=== PATIENT | male | born 1990 | race Caucasian/White ===

== ENCOUNTER 2022-12-25 16:53 | Emergency (ER) | payer BC, SELFPAY ==
--- NOTE | ~2022-12-25 | XR_ITS ---
EXAMINATION: XR CHEST CLINICAL INFORMATION: Chest pain COMPARISON: None available. TECHNIQUE: 2 views of the chest were obtained. FINDINGS: No significant abnormality is noted involving the heart, lungs, mediastinum, bony thorax or soft tissues. XR/XR chest 2V IMPRESSION: Unremarkable chest examination.
--- NOTE | 2022-12-25 16:54 | ECG_ITS ---
Test Reason : CHEST PAIN Blood Pressure : / mmHG Vent. Rate : 078 BPM Atrial Rate : 078 BPM P-R Int : 140 ms QRS Dur : 080 ms QT Int : 342 ms P-R-T Axes : 030 029 014 degrees QTc Int : 389 ms Normal sinus rhythm Anterior infarct , age undetermined Abnormal ECG No previous ECGs available Referred By: Shirley Daigle Electronically Signed By:ERYN OBREGON
[2022-12-25 17:27] VITALS: BP 147/104; PULSE 88; RESP 18; TEMP 36.8; O2SAT 99; BMI 37.9
--- NOTE | 2022-12-25 17:29 | ED_ITS ---
HPI - General Adult General Chief complaint: Chest Pain Stated complaint: chest pain, high blood pressure Time Seen by Provider: 12/25/22 22:30 Source: patient Mode of arrival: ambulatory Limitations: no limitations History of Present Illness HPI narrative: 32-year-old male presents with chest pain. Chest pain started around 10:00 a.m. today. The pain has been intermittent. There is no clear relieving or exacerbating features. He describes the pain is not itching sensation. Sometimes the itching radiates to his neck. Not associated with nausea, vomiting, shortness of breath. Not associated with exertion. He denies any palpitations, lightheadedness. Does have some mild nausea and discomfort. He is taking his blood pressure home with a systolic pressure of 170. He went to have his tooth pulled yesterday and his blood pressure was 116 deferred taking the tooth out until tomorrow. Patient has been off his blood pressure medications for a month. He is typically taking lisinopril 5 mg daily. He does have a follow-up appointment next week with his primary care provider. Related Data Previous Rx's Medication Instructions Recorded lisinopril 10 mg tablet 10 mg PO DAILY #14 tabs 12/25/22 Allergies Allergy/AdvReac Type Severity Reaction Status Date / Time No Known Allergies Allergy Verified 12/25/22 17:30 [No Known Allergies*] Review of Systems 2 Review of Systems: CONSTITUTIONAL: Denies weight loss, fever and chills. HEENT: Denies changes in vision and hearing. RESPIRATORY: Denies SOB and cough. CV: Denies palpitations + CP. GI: Denies abdominal pain, nausea, vomiting and diarrhea. : Denies dysuria and urinary frequency. MSK: Denies myalgia and joint pain. SKIN: Denies rash and pruritus. NEUROLOGICAL: Denies headache and syncope. PSYCHIATRIC: Denies recent changes in mood. Denies anxiety and depression. All other ROS are negative unless in HPI PMF Social History Social History Smoked in Last 30 Days: No Use of substances other than those prescribed or required for medical reasons: Yes Substance Use Type: Marijuana Advance Directives: No Advance Directives Information Provided: No Physical Exam ED Vital Signs: Vital Signs - 24 hr 12/25/22 17:27 10/02/23 22:15 Temperature 98.3 F 98.2 F Pulse Rate 88 78 Respiratory Rate 18 18 Blood Pressure 147/104 H 156/96 H Pulse Oximetry 99 97 Oxygen Delivery Method Room Air Room Air BMI result Body Mass Index 37.9 GEN: Well developed, no acute distress, alert, oriented HEENT: Normocephalic, atraumatic, normal external ears, nose appears normal, no oropharyngeal edema or exudates Eyes: Normal to appearance Neck: Supple, no lymphadenopathy Respiratory: Talks in complete sentences, no respiratory distress, clear to auscultation bilaterally Cardiovascular: Regular rate and rhythm, no murmurs rubs or gallops Abdomen: Soft, nontender, nondistended, no guarding, no rebound Back: No CVA tenderness Extremities: No clubbing cyanosis or edema Neurologic: No focal neurologic deficits, cranial nerves 2-12 intact, strength is 5/5 bilaterally Skin: No rash Course Course Course Narrative: This is an RME: Additional HPI, ROS, PE not included below will be deferred to primary provider. This is a [id number], with a hx of HTN, presenting to the Er with complaints of left sided chest pain, left sided headache and high blood pressure readings. Patient reports that he has been without his medications for the last 2 weeks, he has an appointment with his primary care physician on January 02. Blood pressure elevated at 174/104 in triage. Plan: Labs, EKG, chest xray Reevaluation(s) Reevaluation #1: The workup is complete. His examination is unremarkable. EKG is abnormal but no acute ischemic changes. I did discuss this finding with the patient will refer him to Cardiology for further evaluation. Will provide patient with lisinopril. Believable a dose of 10 mg would be more appropriate than 5 mg. He has follow-up early next week. Time: 23:02 Medical Decision Making Medical Decision Making [facility] Narrative: Patient presents with an itching left-sided chest pain. Not associated with exertion. Examination is benign. Initial EKG shows no acute ischemic changes. Patient was evaluated in triage. Will follow up on laboratory analysis, chest x-ray. Differential diagnosis includes atypical chest pain, hypertensive urgency, angina, ID, pruritus Differential Diagnosis Differential Diagnoses: The differential diagnosis associated with the presentation includes (See above) Admission/Observation Consideration of admission/observation: Escalation of care including admission/observation considered Lab Data [facility] Lab Attestation statement: I reviewed the patient's lab results. 12/25/22 17:45 12/25/22 17:45 Labs: Lab Results 12/25/22 Range/Units 17:45 WBC 10.0 (4.8-10.8) X10*3/uL RBC 5.43 (4.60-5.80) X10*6/uL Hgb 16.6 (14.0-18.0) g/dl Hct 44.8 (42.0-52.0) % MCV 82.5 (80.0-98.0) fL MCH 30.6 (27.0-33.0) pg MCHC 37.1 H (31.0-36.0) g/dl RDW 11.9 (11.0-16.0) % Plt Count 358 (160-400) X10*3/uL MPV 9.0 L (9.4-12.4) fL Immature Gran % (Auto) 0.3 (0.0-0.4) % Neut % (Auto) 58.1 (45-73) % Lymph % (Auto) 30.2 (20-40) % Collier % (Auto) 6.9 (2-11) % Eos % (Auto) 3.7 (0-4) % Baso % (Auto) 0.8 (0-2) % Lymph # (Auto) 3.0 (1.2-4.9) X10*3/uL Collier # (Auto) 0.7 (0.1-1.2) X10*3/uL Eos # (Auto) 0.4 (0.0-0.4) X10*3/uL Baso # (Auto) 0.1 (0.0-0.2) X10*3/uL Abs Immat Gran (auto) 0.03 (0.00-0.03) X10*3/uL Absolute Neuts (auto) 5.8 (2.0-8.3) x10*3/uL Absolute Nucleated RBC 0.000 (0.0-0.012) X10*3/uL Nucleated RBC % (auto) 0.0 (0.0-0.2) /100WBC Sodium 137 (135-145) mmol/L Potassium 4.3 (3.3-5.1) mmol/L Chloride 100 (96-108) mmol/L Carbon Dioxide 24 (22-29) mmol/L Anion Gap 17 (12-20) BUN 11 (9-16) mg/dL Creatinine 0.94 (0.5-1.4) mg/dL Estim Creat Clear Calc 127.9 Estimated GFR > 60 Random Glucose 259 H (60-115) mg/dL Calcium 10.3 H (8.4-10.2) mg/dL Total Bilirubin 0.5 (0.0-1.0) mg/dL Direct Bilirubin 0.1 (0.0-0.5) mg/dL AST 18 (5-37) U/L ALT 32 (0-40) U/L Alkaline Phosphatase 103 (39-117) U/L Troponin I High Sens < 2.7 (<3.5-35.0) ng/L Total Protein 7.9 (6.5-8.0) g/dL Albumin 4.5 (3.5-5.0) g/dL Independent Interpretation I performed an independent interpretation of an: EKG (Normal sinus rhythm heart rate 78, no acute ST elevations depressions, Q-wave noted in lead 3, T-wave inversion in the same lead, no significant S-wave in lead 1, alteration precordial progression, no comparison) and Plain X-Ray (Chest: No acute cardiopulmonary disease) Radiology Impression Discussion of test interpretation with radiology: I have reviewed the radiologist's reading. Radiologist Impression: XR/XR chest 2V IMPRESSION: Unremarkable chest examination. Dictated By: Erick Shay MD Signed By: <Electronically signed by Erick Shay MD in OV> 12/25/221911 Prescription Management I considered prescription management with: Pain Medication Chronic Conditions Patient?s care impacted by: Hypertension Discharge Plan Discharge Clinical Impression: Chest pain, Abnormal ECG, Acute hyperglycemia Patient Disposition: Home, Self-Care Instructions: Chest Pain (ED), Nondiabetic Hyperglycemia (ED), Electrophysiology Study (DC) Prescriptions: New lisinopril 10 mg tablet 10 mg PO DAILY Qty: 14 0RF Referrals: Physician,Unknown J [Primary Care Provider] - (PMD as scheduled)
[2022-12-25 17:49] LABS: MANUAL DIFF FLAG NO
[2022-12-25 18:04] LABS: Alanine Aminotransferase 32 U/L (0-40); Albumin Level 4.5 g/dL (3.5-5.0); Alkaline Phosphatase 103 U/L (39-117); Anion Gap 17 (12-20); Aspartate Amino Transferase 18 U/L (5-37); Basophils Absolute Auto 0.1 X10*3/uL (0.0-0.2); Basophils Percent Auto 0.8 % (0-2); Bilirubin Direct 0.1 mg/dL (0.0-0.5); Bilirubin Total 0.5 mg/dL (0.0-1.0); Blood Urea Nitrogen 11 mg/dL (9-16); Calcium 10.3 mg/dL (8.4-10.2); Carbon Dioxide 24 mmol/L (22-29); Chloride 100 mmol/L (96-108); Creatinine Clr Calc Pharmacy 127.9; Eosinophils Absolute Auto 0.4 X10*3/uL (0.0-0.4); Eosinophils Percent Auto 3.7 % (0-4); Estimated Glomerular Filt Rate > 60; Glucose Random 259 mg/dL (60-115); Hematocrit 44.8 % (42.0-52.0); Hemoglobin 16.6 g/dl (14.0-18.0); Imm Gran Abs Auto 0.03 X10*3/uL (0.00-0.03); Imm Gran Pct Auto 0.3 % (0.0-0.4); Lymphocytes Percent Auto 30.2 % (20-40); Mean Corpuscular HGB Conc 37.1 g/dl (31.0-36.0); Mean Corpuscular Hemoglobin 30.6 pg (27.0-33.0); Mean Corpuscular Volume 82.5 fL (80.0-98.0); Monocytes Absolute Auto 0.7 X10*3/uL (0.1-1.2); Monocytes Percent Auto 6.9 % (2-11); Neutrophils Absolute Auto 5.8 x10*3/uL (2.0-8.3); Neutrophils Percent Auto 58.1 % (45-73); Platelet Count 358 X10*3/uL (160-400); Potassium 4.3 mmol/L (3.3-5.1); Red Blood Count 5.43 X10*6/uL (4.60-5.80); Red Cell Distribution Width 11.9 % (11.0-16.0); Sodium 137 mmol/L (135-145); Total Protein 7.9 g/dL (6.5-8.0)
[2022-12-25 18:11] LABS: Troponin-I High Sensitivity < 2.7 ng/L (<3.5-35.0)
--- NOTE | 2022-12-25 22:13 | PC.NURSE ---
nsr on monitor; vss. awaiting primary eval by ed provider.
[2022-12-25 22:15] VITALS: BP 156/96; PULSE 78; RESP 18; TEMP 36.8; O2SAT 97
--- NOTE | 2022-12-25 22:34 | PC.NURSE ---
iv established. pt denies questions concerns at this time. pt in room with significant other. call irizarry within reach.
[2022-12-25 23:23] VITALS: BP 149/89; PULSE 72; RESP 16; O2SAT 98
== END 2022-12-25 23:24 | disposition home or self-care (01) ==
PROVIDERS: Physician Assistant Medical; Emergency Provider Emergency Medicine
DX: R07.89 Other chest pain (principal); M54.2 Cervicalgia; R11.2 Nausea with vomiting, unspecified; R94.31 Abnormal electrocardiogram [ECG] [EKG]; R73.9 Hyperglycemia, unspecified; Z79.899 Other long term (current) drug therapy
CPT/HCPCS: 36415; 71046; 80048; 80076; 84484; 85025; 93005; 99283; 99285

== ENCOUNTER 2024-05-11 08:47 | Emergency (ER) | payer SELFPAY ==
[2024-05-11 09:02] VITALS: BP 160/99; PULSE 102; RESP 18; TEMP 36.6; O2SAT 96; BMI 36.8
--- NOTE | 2024-05-11 09:13 | ED_ITS ---
HPI - General Adult General Chief complaint: Skin/Abscess/Foreign Body Stated complaint: lumps under skin on neck Time Seen by Provider: 05/11/24 09:12 Source: patient, RN notes reviewed and old records reviewed Mode of arrival: ambulatory Limitations: no limitations History of Present Illness ED Provider: [facility] narrative: Patient is a 33-year-old male presenting to the ED with complaint of several bumps to his neck and head. States that he noted swelling to left side of neck in mid March, then a few days ago developed painful lumps to the back of head. Denies fevers. Denies recent sore throat, cough, URI symptoms. Denies weight loss, night sweats, chills body aches. complaint: head and neck lumps Related Data Previous Rx's ?Medication ?Instructions ?Recorded lisinopril 10 mg tablet 10 mg PO DAILY #14 tabs 12/25/22 chlorhexidine gluconate 4 % 1 appl topical DAILY 2 weeks #118 05/11/24 topical liquid (Antiseptic Skin mL Cleanser (chlorhexidine)) clindamycin phosphate 1 % lotion 1 appl topical BID #60 mL 05/11/24 Allergies Allergy/AdvReac Type Severity Reaction Status Date / Time No Known Allergies Allergy Verified 05/11/24 09:05 [No Known Allergies*] Review of Systems 2 Review of Systems: As per HPI Yes all other systems are reviewed and are negative Constitutional: Constitutional: Reports as per HPI [facility] Social History Social History Substance Use Type: Marijuana Advance Directives: No Advance Directives Information Provided: No Physical Exam ED Vital Signs: Vital Signs - 24 hr 05/11/24 09:02 Temperature 97.9 F Pulse Rate 102 H Respiratory Rate 18 Blood Pressure 160/99 H Pulse Oximetry 96 Oxygen Delivery Method Room Air BMI result Body Mass Index 36.8 Vital signs have been reviewed and appear to be correct. Blood pressure elevated. Heart rate slightly tachycardic. Respiratory rate normal. Temperature normal. Oxygen saturation normal. Const General: cooperative, healthy appearing and no acute distress Orientation/consciousness: oriented to person, oriented to place, oriented to time and patient oriented x3 Limitations: no limitations HENMT Head: Yes normocephalic and Yes atraumatic Head images: 2 1. tender swelling with erythema, no drainage 2. tender swelling with erythema, no drainage Ears: external ears normal General nose exam: Normal external nose present Face and sinus: Yes face symmetric Mouth: oropharynx normal and moist mucous membranes Throat: Yes uvula midline Eyes Pupils: Equal, round and reactive pupils present Neck Neck: Yes normal visual inspection and Yes supple Lymphatic: lymphadenopathy left anterior cervical single, small and soft Resp Effort & Inspection: normal respiratory effort and able to speak in complete sentences Auscultation: clear to auscultation bilaterally Cardio Rate: regular rate Rhythm: regular rhythm Heart sounds: S1 normal heart sound present and S2 normal heart sound present GI Palpation (GI): Soft to palpation and nontender Auscultation: normoactive bowel sounds General: Yes no CVA tenderness Back/Spine/Pelvis Back: no CVA tenderness Skin General skin exam: elasticity normal and turgor normal Neuro General: oriented to person, oriented to place, oriented to time, patient oriented x3, moves all extremities, no focal motor deficits and CN's II-XI intact bilaterally Cranial nerves: Yes Equal, round and reactive pupils present Cognition (Neuro): normal cognition Extrem General: Yes full ROM, Yes no pedal edema and Yes no calf tenderness Psych Mental Status: mental status grossly normal Affect: normal affect Thought process: Normal thought process present Medical Decision Making Medical Decision Making [facility] Narrative: Patient is a 33-year-old male presenting to the ED with complaint of several bumps to his neck and head. On exam patient is awake, A+Ox3, VS WNL, afebrile, normal neurological exam without focal deficits, physical exam findings as above. Given reported symptoms and physical exam findings, initial differential includes but is not limited to lymphadenopathy, folliculitis, viral illness, strep pharyngitis, mononucleosis. Labs notable for elevated glucose without anion gap, negative monospot, no leukocytosis. Viral and strep swabs negative. Results discussed with patient and all questions answered. Will treat folliculitis with clindamycin cream, chlorhexidine wash. Follow up with PCP. Return precautions discussed. Patient verbalized understanding of and agreement with plan. Differential Diagnosis Differential Diagnoses: The differential diagnosis associated with the presentation includes as per [facility] Lab Data [facility] Lab Attestation statement: I reviewed the patient's lab results. as per [facility] 05/11/24 09:26 05/11/24 09:26 Labs: Lab Results 05/11/24 Range/Units 09:26 WBC 8.7 (4.8-10.8) X10*3/uL RBC 5.13 (4.60-5.80) X10*6/uL Hgb 14.0 (14.0-18.0) g/dl Hct 41.8 L (42.0-52.0) % MCV 81.5 (80.0-98.0) fL MCH 27.3 (27.0-33.0) pg MCHC 33.5 (31.0-36.0) g/dl RDW 11.6 (11.0-16.0) % Plt Count 302 (160-400) X10*3/uL MPV 8.6 L (9.4-12.4) fL Immature Gran % (Auto) 0.1 (0.0-0.4) % Neut % (Auto) 56.6 (45-73) % Lymph % (Auto) 29.9 (20-40) % Luce % (Auto) 9.0 (2-11) % Eos % (Auto) 3.6 (0-4) % Baso % (Auto) 0.8 (0-2) % Lymph # (Auto) 2.6 (1.2-4.9) X10*3/uL Luce # (Auto) 0.8 (0.1-1.2) X10*3/uL Eos # (Auto) 0.3 (0.0-0.4) X10*3/uL Baso # (Auto) 0.1 (0.0-0.2) X10*3/uL Abs Immat Gran (auto) 0.01 (0.00-0.03) X10*3/uL Absolute Neuts (auto) 4.9 (2.0-8.3) x10*3/uL Absolute Nucleated RBC 0.000 (0.0-0.012) X10*3/uL Nucleated RBC % (auto) 0.0 (0.0-0.2) /100WBC Smear Tech's Comments VERIFIED Sodium 135 (135-145) mmol/L Potassium 4.6 (3.3-5.1) mmol/L Chloride 99 (96-108) mmol/L Carbon Dioxide 21 L (22-29) mmol/L Anion Gap 20 (12-20) BUN 11 (9-16) mg/dL Creatinine 0.80 (0.5-1.4) mg/dL Estim Creat Clear Calc 146.6 Estimated GFR > 60 Random Glucose 382 H* (60-115) mg/dL Calcium 9.1 D (8.4-10.2) mg/dL Total Bilirubin 0.6 (0.0-1.0) mg/dL AST 18 (5-37) U/L ALT 29 (0-40) U/L Alkaline Phosphatase 109 (39-117) U/L Total Protein 7.9 (6.5-8.0) g/dL Albumin 4.3 (3.5-5.0) g/dL Monoscreen Negative (Negative) Influenza Type A (PCR) NEGATIVE (Negative) Influenza Type B (PCR) NEGATIVE (Negative) RSV RNA Qual (PCR) NEGATIVE (Negative) SARS-CoV-2 RNA (RT-PCR) NEGATIVE (Negative) S. pyogenes GrpA JANES Negative (Negative) External Record Review External record reviewed: Inpatient record, Office record and Outpatient record Prescription Management I considered prescription management with: Antibiotic Discharge Plan Discharge Clinical Impression: Folliculitis, Lymphadenopathy of left cervical region Patient Disposition: Home, Self-Care Instructions: Lymphadenopathy (ED), Folliculitis (ED) Additional Instructions: You were evaluated in the emergency department today for bumps to your head and neck. The bump to the left side of your neck is consistent with a swollen lymph node. We recommend that you follow-up with your primary care provider regarding this. The bumps on your head are due to folliculitis which is an infection of the hair follicle. You are being prescribed a cream to apply twice daily as well as a an antiseptic skin cleanser to use daily on your scalp. Assess the areas daily for worsening swelling, redness, drainage and follow up with your PCP or return to the ED if this occurs. Return to the emergency department with new or concerning symptoms. Prescriptions: New clindamycin phosphate 1 % lotion 1 appl topical BID Qty: 60 0RF chlorhexidine gluconate [Antiseptic Skin Clnsr(chlorhe)] 4 % liquid 1 appl topical DAILY 14 Days Qty: 118 0RF No Action lisinopril 10 mg tablet 10 mg PO DAILY Qty: 14 0RF Print Language: Turkish
[2024-05-11 09:31] LABS: Basophils Absolute Auto 0.1 X10*3/uL (0.0-0.2); Basophils Percent Auto 0.8 % (0-2); Eosinophils Absolute Auto 0.3 X10*3/uL (0.0-0.4); Eosinophils Percent Auto 3.6 % (0-4); Hematocrit 41.8 % (42.0-52.0); Imm Gran Abs Auto 0.01 X10*3/uL (0.00-0.03); Imm Gran Pct Auto 0.1 % (0.0-0.4); Lymphocytes Absolute Auto 2.6 X10*3/uL (1.2-4.9); Lymphocytes Percent Auto 29.9 % (20-40); MANUAL DIFF FLAG SCAN; Mean Corpuscular Volume 81.5 fL (80.0-98.0); Mean Platelet Volume 8.6 fL (9.4-12.4); Monocytes Absolute Auto 0.8 X10*3/uL (0.1-1.2); Neutrophils Absolute Auto 4.9 x10*3/uL (2.0-8.3); Neutrophils Percent Auto 56.6 % (45-73); Platelet Count 302 X10*3/uL (160-400); Red Blood Count 5.13 X10*6/uL (4.60-5.80); Red Cell Distribution Width 11.6 % (11.0-16.0); SCAN SMEAR FLAG 1; White Blood Count 8.7 X10*3/uL (4.8-10.8)
[2024-05-11 09:38] LABS: Mean Corpuscular HGB Conc 33.5 g/dl (31.0-36.0); Mean Corpuscular Hemoglobin 27.3 pg (27.0-33.0)
[2024-05-11 09:56] LABS: Alanine Aminotransferase 29 U/L (0-40); Albumin Level 4.3 g/dL (3.5-5.0); Alkaline Phosphatase 109 U/L (39-117); Anion Gap 20 (12-20); Aspartate Amino Transferase 18 U/L (5-37); Bilirubin Total 0.6 mg/dL (0.0-1.0); Blood Urea Nitrogen 11 mg/dL (9-16); Calcium 9.1 mg/dL (8.4-10.2); Carbon Dioxide 21 mmol/L (22-29); Chloride 99 mmol/L (96-108); Creatinine Clr Calc Pharmacy 146.6; Estimated Glomerular Filt Rate > 60; Glucose Random 382 mg/dL (60-115); Potassium 4.6 mmol/L (3.3-5.1); Sodium 135 mmol/L (135-145); Total Protein 7.9 g/dL (6.5-8.0)
[2024-05-11 10:04] LABS: Monotest Negative (Negative)
[2024-05-11 10:11] LABS: Influenza A PCR NEGATIVE (Negative); Influenza B PCR NEGATIVE (Negative); Resp Syncy Virus RNA Qual PCR NEGATIVE (Negative); SARS COV2 PCR INHOUSE NEGATIVE (Negative)
[2024-05-11 10:16] LABS: IDNOW Serial# 58CA691E; SLIDE REVIEW VERIFIED; Strep A Nucleic Acid Negative (Negative)
[2024-05-11 11:10] VITALS: BP 160/99; PULSE 102; RESP 18; TEMP 36.6; O2SAT 96
== END 2024-05-11 11:10 | disposition home or self-care (01) ==
PROVIDERS: Registered Nurse Emergency; Emergency Provider Emergency Medicine; PCP Internal Medicine
DX: L73.8 Other specified follicular disorders (principal); R59.0 Localized enlarged lymph nodes; Z03.818 Encounter for observation for suspected exposure to other biological agents ruled out; Z79.899 Other long term (current) drug therapy
CPT/HCPCS: 0241U; 36415; 80053; 85025; 86308; 87651; 99282; 99283

== ENCOUNTER 2024-05-15 00:18 | Emergency (ER) | payer OTHER, SELFPAY ==
[2024-05-15 00:33] VITALS: BP 152/96; PULSE 136; RESP 20; TEMP 37.6; O2SAT 98; BMI 36.6
[2024-05-15 01:27] LABS: Basophils Absolute Auto 0.1 X10*3/uL (0.0-0.2); Basophils Percent Auto 0.6 % (0-2); Eosinophils Absolute Auto 0.1 X10*3/uL (0.0-0.4); Eosinophils Percent Auto 0.5 % (0-4); Hematocrit 44.6 % (42.0-52.0); Hemoglobin 16.5 g/dl (14.0-18.0); Imm Gran Pct Auto 0.5 % (0.0-0.4); Lymphocytes Percent Auto 9.1 % (20-40); MANUAL DIFF FLAG SCAN; Mean Corpuscular Hemoglobin 29.8 pg (27.0-33.0); Mean Corpuscular Volume 80.5 fL (80.0-98.0); Mean Platelet Volume 8.5 fL (9.4-12.4); Monocytes Absolute Auto 1.8 X10*3/uL (0.1-1.2); Neutrophils Absolute Auto 17.9 x10*3/uL (2.0-8.3); Neutrophils Percent Auto 81.3 % (45-73); Platelet Count 420 X10*3/uL (160-400); Red Blood Count 5.54 X10*6/uL (4.60-5.80); Red Cell Distribution Width 11.8 % (11.0-16.0); SCAN SMEAR FLAG 1
[2024-05-15 01:45] LABS: SLIDE REVIEW VERIFIED
[2024-05-15 01:50] LABS: Alanine Aminotransferase 18 U/L (0-40); Albumin Level 4.7 g/dL (3.5-5.0); Alkaline Phosphatase 110 U/L (39-117); Anion Gap 20 (12-20); Aspartate Amino Transferase 18 U/L (5-37); Blood Urea Nitrogen 14 mg/dL (9-16); Calcium 10.3 mg/dL (8.4-10.2); Carbon Dioxide 20 mmol/L (22-29); Chloride 100 mmol/L (96-108); Creatinine Clr Calc Pharmacy 120.6; Estimated Glomerular Filt Rate > 60; Glucose Random 328 mg/dL (60-115); Potassium 4.3 mmol/L (3.3-5.1); Sodium 136 mmol/L (135-145); Total Protein 9.3 g/dL (6.5-8.0)
[2024-05-15 02:50] VITALS: BP 153/87; PULSE 120; RESP 18; TEMP 37; O2SAT 96
[2024-05-15 03:43] VITALS: BP 152/94; PULSE 110; RESP 20; TEMP 37.1; O2SAT 97
--- NOTE | 2024-05-15 04:48 | ED.GENADULT ---
HPI - General Adult General Chief complaint: Skin/Abscess/Foreign Body Stated complaint: abscess Time Seen by Provider: 05/15/24 04:47 Source: patient Mode of arrival: ambulatory Limitations: no limitations History of Present Illness ED Provider: Dr. Gregg Yen HPI narrative: 33-year-old male with a history of diabetes mellitus who presents emergency department for evaluation of pain and swelling to the right occipital area of his scalp. Patient states that 05/08/2024 (6 days prior to evaluation). He was given clindamycin lotion and chlorhexidine anti septic liquid. He states that he was using these medications with no improvement. He states that the pain is gotten worse in the area of redness has also increased in size. Patient was taking Tylenol and ibuprofen with no relief his pain. States that he did develop chills but no fever. He had nausea and a headache. The patient does have diabetes and takes metformin twice a day. He states that despite being on metformin his glucose is always in the 250-300 range he has never had good control of his glucose. Related Data Previous Rx's ?Medication ?Instructions ?Recorded lisinopril 10 mg tablet 10 mg PO DAILY #14 tabs 12/25/22 chlorhexidine gluconate 4 % 1 appl topical DAILY 2 weeks #118 05/11/24 topical liquid (Antiseptic Skin mL Cleanser (chlorhexidine)) clindamycin phosphate 1 % lotion 1 appl topical BID #60 mL 05/11/24 acetaminophen 500 mg tablet 1,000 mg (2 x 500 mg) PO Q6H PRN 05/15/24 (Tylenol Extra Strength) fever or pain #20 tabs cephalexin 500 mg capsule 500 mg PO QID 7 days #28 caps 05/15/24 doxycycline hyclate 100 mg tablet 100 mg PO Q12H 7 days #14 tabs 05/15/24 ibuprofen 400 mg tablet 400 mg PO TID PRN fever or pain 05/15/24 #30 tabs morphine 15 mg immediate release 15 mg PO Q6H PRN pain #14 tabs 05/15/24 tablet Allergies Allergy/AdvReac Type Severity Reaction Status Date / Time No Known Allergies Allergy Verified 05/15/24 00:35 [No Known Allergies*] Review of Systems Review of Systems: Yes all other systems are reviewed and are negative [facility] Social History Social History Substance Use Type: Marijuana Advance Directives: No Advance Directives Information Provided: Yes Physical Exam ED Vital Signs: Vital Signs - 24 hr 05/15/24 00:33 05/15/24 02:50 05/15/24 03:43 Temperature 99.7 F 98.6 F 98.7 F Pulse Rate 136 H 120 H 110 H Respiratory Rate 20 18 20 Blood Pressure 152/96 H 153/87 H 152/94 H Pulse Oximetry 98 96 97 Oxygen Delivery Method Room Air Room Air Room Air 05/15/24 06:12 Temperature 98.8 F Pulse Rate 114 H Respiratory Rate 24 H Blood Pressure 153/102 H Pulse Oximetry 97 Oxygen Delivery Method Room Air BMI result Body Mass Index 36.6 Vital signs revealed an elevated blood pressure otherwise unremarkable. Exam: General: Awake, alert , patient appears in distress secondary to his pain. Head: Normocephalic, atraumatic, patient has a indurated area of erythema to his right posterior scalp which is tender to palpation and warm to the touch. There is no flocculence. EENT: PERRL, Lids normal, sclera normal, conjunctiva normal, nose normal , ears normal, throat without erythema or exudates Neck: Supple, no adenopathy Lung: breath sounds symmetric, no wheezing, rales or rhonchi Chest: symmetric movement, nontender Heart: regular rate and rhythm, normal S1, S2 no murmurs or rubs Abdomen: soft, non-tender, nondistended, normal bowel sounds Back: no vertebral tenderness, no CVAT Extremities: no deformities, moves all extremities symmetrically Neuro: Awake, alert, oriented, normal speech, cranial nerves intact, moves all extremities symmetrically Psych: Pleasant, cooperative Medications Administered Discontinued Medications Generic Name Dose Route Start Last Admin Trade Name Freq PRN Reason Stop Dose Admin Ceftriaxone Sodium 1 gm 05/15/24 05:01 05/15/24 05:25 Ceftriaxone Sodium 1 Gm Vial IVPUSH 05/15/24 05:02 1 gm ONCE ONE Administration Hydromorphone HCl 1 mg 05/15/24 06:33 05/15/24 06:51 Hydromorphone Hcl 1 Mg/Ml Syringe IVPUSH 05/15/24 06:34 1 mg ONCE STA Administration Protocol Sodium Chloride 1,000 mls @ 999 mls/hr 05/15/24 05:01 05/15/24 06:30 Ns IV 05/15/24 06:01 Infused .Q1H1M STA Infusion Insulin Human Regular 5 unit 05/15/24 05:04 05/15/24 05:23 Insulin Regular, Human 100 Unit/Ml 10 Ml Vial IVPUSH 05/15/24 05:05 5 unit ONCE ONE Administration Morphine Sulfate 4 mg 05/15/24 05:01 05/15/24 05:31 Morphine Sulfate 4 Mg/Ml Cartridge IVPUSH 05/15/24 05:02 4 mg ONCE STA Administration Protocol Ondansetron HCl 4 mg 05/15/24 05:27 05/15/24 05:30 Ondansetron Hcl 4 Mg/2 Ml Vial IVPUSH 05/15/24 05:28 4 mg ONCE ONE Administration Medical Decision Making Medical Decision Making [facility] Narrative: 33-year-old male with a history of diabetes mellitus who presents emergency department for evaluation of pain and swelling to the right occipital area of his scalp x6 days, seen in the ED the 05/08/2024 and treated with topical clindamycin and chlorhexidine liquids with no improvement of his symptoms. Patient states that the area of redness is gotten larger and he was had increased pain. Patient also had chills, nausea and a headache. Physical examination did reveal an indurated area of erythema with no flocculence in the right posterior scalp. Vital signs did reveal elevated blood pressure of 152/96 and elevated pulse of 114-believe that these are elevated due to his blood pressure and not due to an infectious process. Differential diagnosis: ?Includes but is not limited to scalp cellulitis, scalp abscess, electrolyte abnormalities, anemia Course: 06:40 My interpretation patient's laboratory evaluation is as follows: WBC elevated 22,000. Platelet count elevated 420,000. Glucose elevated 328. Patient was presentation is consistent with cellulitis of the scalp, at this time I do not think that he was an abscess that can be incised incised and drained. The patient was treated with normal saline IV x1 L, morphine 4 mg IV, Dilaudid 1 mg IV, insulin 5 mg IV and normal saline x1 L. patient was discharged home with prescriptions for Keflex 500 mg 4 times a day for 7 days, doxycycline 100 mg twice a day for 7 days, ibuprofen 400 mg 3 times a day as needed for pain, Tylenol 1000 mg 3 times a day as needed for pain and for pain not relieved by these medications he was prescribed morphine 15 mg every 6 hours as needed for pain. Patient was advised to use a heating pad on low for 15 minutes 4 to 6 times a day to increase the blood flow to the area and help the healing process. He was given printed and verbal instructions and discharged home. Admission/Observation Consideration of admission/observation: Escalation of care including admission/observation considered (Yes) Lab Data MDM Lab Attestation statement: I reviewed the patient's lab results. 05/15/24 01:21 05/15/24 01:21 Labs: Lab Results 05/15/24 05/15/24 Range/Units 01:21 05:25 WBC 22.0 H (4.8-10.8) X10*3/uL RBC 5.54 (4.60-5.80) X10*6/uL Hgb 16.5 (14.0-18.0) g/dl Hct 44.6 (42.0-52.0) % MCV 80.5 (80.0-98.0) fL MCH 29.8 (27.0-33.0) pg MCHC 37.0 H (31.0-36.0) g/dl RDW 11.8 (11.0-16.0) % Plt Count 420 H D (160-400) X10*3/uL MPV 8.5 L (9.4-12.4) fL Immature Gran % (Auto) 0.5 H (0.0-0.4) % Neut % (Auto) 81.3 H (45-73) % Lymph % (Auto) 9.1 L (20-40) % [place] % (Auto) 8.0 (2-11) % Eos % (Auto) 0.5 (0-4) % Baso % (Auto) 0.6 (0-2) % Lymph # (Auto) 2.0 (1.2-4.9) X10*3/uL [place] # (Auto) 1.8 H (0.1-1.2) X10*3/uL Eos # (Auto) 0.1 (0.0-0.4) X10*3/uL Baso # (Auto) 0.1 (0.0-0.2) X10*3/uL Abs Immat Gran (auto) 0.10 H (0.00-0.03) X10*3/uL Absolute Neuts (auto) 17.9 H (2.0-8.3) x10*3/uL Absolute Nucleated RBC 0.000 (0.0-0.012) X10*3/uL Nucleated RBC % (auto) 0.0 (0.0-0.2) /100WBC Smear Tech's Comments VERIFIED Sodium 136 (135-145) mmol/L Potassium 4.3 (3.3-5.1) mmol/L Chloride 100 (96-108) mmol/L Carbon Dioxide 20 L (22-29) mmol/L Anion Gap 20 (12-20) BUN 14 (9-16) mg/dL Creatinine 0.97 (0.5-1.4) mg/dL Estim Creat Clear Calc 120.6 Estimated GFR > 60 POC Glucose 298 H (60-115) mg/dL Random Glucose 328 H (60-115) mg/dL Calcium 10.3 H D (8.4-10.2) mg/dL Total Bilirubin 1.0 (0.0-1.0) mg/dL AST 18 (5-37) U/L ALT 18 (0-40) U/L Alkaline Phosphatase 110 (39-117) U/L Total Protein 9.3 H (6.5-8.0) g/dL Albumin 4.7 (3.5-5.0) g/dL Prescription Management I considered prescription management with: Pain Medication (Tylenol, ibuprofen, morphine) and Antibiotic (Doxycycline, Keflex) Chronic Conditions Patient?s care impacted by: Diabetes Discharge Plan Discharge Clinical Impression: Cellulitis of head or scalp, Acute hyperglycemia Patient Disposition: Home, Self-Care Instructions: Cellulitis (ED) Additional Instructions: Use a heating pad on low for 15-20 minutes 4 to 6 times a day to increase the blood flow to the area and help the healing process. At this time I do not think that there is an abscess that can be drained however if the area of redness gets soft in the center then there may be an abscess that needs to be drained in you should return to the emergency department for re-evaluation. Take Keflex (cephalexin) 500 mg pills, 1 pill 4 times a day for 7 days. Take doxycycline 100 mg, 1 pill every 12 hours for 7 days Take ibuprofen 400 mg pills, 1 pills every 6 hours as needed for pain. Take Tylenol (acetaminophen) 2 pills every 6 hours as needed for pain. For pain not relieved by ibuprofen or Tylenol take morphine 15 mg pills, 1 pill every 6 hours as needed for pain. This medication will make you sleepy, do not drive or work while taking this medication. Morphine is a narcotic medication and can be addicting. If you are concerned about addiction you can ask the pharmacist for less pills or do not get this prescription filled. Follow-up with your doctor in 2 days. Please return to the emergency department if your symptoms get worse or if you develop any symptoms that are concerning to you. Prescriptions: New acetaminophen [Tylenol Extra Strength] 500 mg tablet 1,000 mg PO Q6H PRN (Reason: fever or pain) Qty: 20 0RF cephalexin 500 mg capsule 500 mg PO QID 7 Days Qty: 28 0RF ibuprofen 400 mg tablet 400 mg PO TID PRN (Reason: fever or pain) Qty: 30 0RF morphine 15 mg tablet 15 mg PO Q6H PRN (Reason: pain) Qty: 14 0RF Rx Instructions: Patient may request partial fill; Partial Fill upon patient request. doxycycline hyclate 100 mg tablet 100 mg PO Q12H 7 Days Qty: 14 0RF No Action clindamycin phosphate 1 % lotion 1 appl topical BID Qty: 60 0RF chlorhexidine gluconate [Antiseptic Skin Clnsr(chlorhe)] 4 % liquid 1 appl topical DAILY 14 Days Qty: 118 0RF lisinopril 10 mg tablet 10 mg PO DAILY Qty: 14 0RF Stand Alone Forms: Work/School Release Interventions: ED Discharge Assessment Last Done: 05/15/24 07:47 Discharge Date/Time: 05/15/24 07:48 Print Language: Wolof
[2024-05-15] MEDS: 0.9 % Sodium Chloride 1,000 ML 999 ML IV (05:21)
[2024-05-15] MEDS: Insulin Regular, Human 100 UNIT/ML 10 ML VIAL IVPUSH (05:23)
[2024-05-15] MEDS: cefTRIAXone sodium 1 GM VIAL IVPUSH (05:25)
[2024-05-15] MEDS: ondansetron HCL 4 MG/2 ML VIAL IVPUSH (05:30)
[2024-05-15] MEDS: Morphine Sulfate 4 MG/ML CARTRIDGE IVPUSH (05:31)
[2024-05-15 05:37] LABS: Glucose, Whole Blood 298 mg/dL (60-115)
[2024-05-15 06:12] VITALS: BP 153/102; PULSE 114; RESP 24; TEMP 37.1; O2SAT 97
[2024-05-15] MEDS: HYDROmorphone HCl 1 MG/ML SYRINGE IVPUSH (06:51)
[2024-05-15 07:47] VITALS: BP 153/92; PULSE 112; RESP 16; TEMP 36.6; O2SAT 100
== END 2024-05-15 07:48 | disposition home or self-care (01) ==
PROVIDERS: Emergency Provider Emergency Medicine Emergency Medical Services; PCP Internal Medicine
DX: L03.811 Cellulitis of head [any part, except face] (principal); R11.0 Nausea; E11.65 Type 2 diabetes mellitus with hyperglycemia; Z79.4 Long term (current) use of insulin; Z79.899 Other long term (current) drug therapy
CPT/HCPCS: 36415; 80053; 82947; 85025; 96361; 96374; 96375; 99284; J0696; J1171; J2270; J2405